=== PATIENT | female | born 1970 | race African-American/Black ===

== ENCOUNTER 2021-05-09 15:39 | Inpatient (IN) | payer SELFPAY ==
[~2021-05-09] VITALS: Ht 165.1 cm; Wt 109.8 kg
[2021-05-09] MEDS ORDERED: SODIUM CHLORIDE 0.9% 1,000 ML IV ONE ×3 (16:15→20:00)
[2021-05-09 19:14] LABS: CHLORIDE 98 mEq/L (98-107)
[2021-05-09 19:19] LABS: ETHANOL BLOOD < 10 mg/dL
[2021-05-09] MEDS ORDERED: MAGNESIUM 2 G PREMIX 50 ML IV ONE (20:00)
[2021-05-09] MEDS ORDERED: POTASSIUM CHLORIDE 20MEQ TABLET SR PO ONE (20:00)
[2021-05-09] MEDS ORDERED: KCL 20MEQ/100ML PREMIX 100 ML IV ONE (20:00)
[2021-05-09 20:22] LABS: HEMATOCRIT. 44.6 % (36.0-48.0); HEMOGLOBIN. 14.5 g/dL (12.0-16.0); MEAN CORPUSCULAR HEMOGLOBIN 27.6 pg (28.0-32.0); MEAN CORPUSCULAR VOLUME 84.8 fL (81.0-99.0); MEAN PLATELET VOLUME 9.2 fl (7.4-10.4); PLATELET 316 x1000/uL (130-400); RED BLOOD CELL COUNT 5.26 mill/uL (4.2-5.4)
[2021-05-09] MEDS ORDERED: ONDANSETRON HCL 4MG/2ML INJ IV PRN (21:30)
[2021-05-09] MEDS ORDERED: ACETAMINOPHEN 325MG TABLET PO PRN (21:30)
[2021-05-09 21:40] LABS: PLATELET ESTIMATE NORMAL
[2021-05-09] MEDS ORDERED: MAGNESIUM 2 G PREMIX 50 ML IV NR (21:40)
[2021-05-09] MEDS ORDERED: ASPIRIN 81MG TABLET PO ONE (21:45)
[2021-05-09 23:16] LABS: CLARITY URINE CLOUDY (CLEAR); COLOR URINE YELLOW (YELLOW); KETONES URINE NEGATIVE (NEGATIVE); LEUKOCYTE ESTERASE URINE TRACE (NEGATIVE); NITRITE URINE NEGATIVE (NEGATIVE); OCCULT BLOOD URINE TRACE (NEGATIVE); PH URINE 5.5 (4.5-8.0); PROTEIN URINE 1+ (NEGATIVE); SPECIFIC GRAVITY URINE 1.011 (1.005-1.030); UROBILINOGEN URINE 0.2 E.U./dL (0.2-1.0)
[2021-05-09 23:20] LABS: PARTIAL THROMBOPLASTIN TIME > 200.0 sec (23.4-31.0)
[2021-05-09 23:31] LABS: *BARBITURATES SCREEN URINE NEGATIVE (NEGATIVE); *BENZODIAZEPINES SCREEN URINE NEGATIVE (NEGATIVE); *COCAINE SCREEN URINE NEGATIVE (NEGATIVE); METHADONE URINE SCREEN NEGATIVE (NEGATIVE)
[2021-05-09 23:32] LABS: *AMPHETAMINES SCREEN URINE NEGATIVE (NEGATIVE); CANNABINOID URINE SCREEN NEGATIVE (NEGATIVE); OPIATES URINE SCREEN NEGATIVE (NEGATIVE); PHENCYCLIDINE URINE SCREEN NEGATIVE (NEGATIVE)
[2021-05-10 05:05] LABS: HEMATOCRIT. 44.9 % (36.0-48.0); HEMOGLOBIN. 14.6 g/dL (12.0-16.0); MEAN CORPUSCULAR HEMOGLOBIN 27.3 pg (28.0-32.0); MEAN CORPUSCULAR VOLUME 84.1 fL (81.0-99.0); MEAN PLATELET VOLUME 8.9 fl (7.4-10.4); PLATELET 336 x1000/uL (130-400); RED BLOOD CELL COUNT 5.34 mill/uL (4.2-5.4); RED CELL DISTRIBUTION WIDTH 16.9 % (11.6-14.6)
[2021-05-10 05:11] LABS: CHLORIDE 104 mEq/L (98-107)
[2021-05-10] MEDS: FUROSEMIDE 40MG/4ML VIAL IV SCH ×3 (05:13→09:00)
[2021-05-10 05:21] LABS: T4 FREE 1.06 ng/dL (0.76-1.46)
[2021-05-10] MEDS ORDERED: ASPIRIN 81MG TABLET PO SCH (05:30)
[2021-05-10] MEDS: SODIUM CHLORIDE 0.9% 1,000 ML IV SCH ×3 (06:29→17:45)
[2021-05-10] MEDS: ENOXAPARIN 30MG/0.3ML SYR SUBCUT SCH ×3 (06:29→21:19)
[2021-05-10] MEDS: KCL 20MEQ/100ML PREMIX 100 ML IV SCH ×4 (07:38→19:32)
[2021-05-10 09:31] LABS: BG BASE EXCESS 6.4 mmol/L (-2.0-2.0); BG CARBOXYHEMOGLOBIN 1.7 % (0.5-1.5); BG DEOXYHEMOGLOBIN 2.8 % (0.0-5.0); BG FRACTION INSPIRED OXYGEN 28; BG HCO3 ACT 32.2 mmol/L (22.0-26.0); BG METHEMOGLOBIN 0.3 % (0.0-1.5); BG OXYGEN SATURATION 97.1 % (92.0-98.5); BG OXYHEMOGLOBIN 95.2 % (94.0-97.0); BG PCO2 49.9 mmHg (35.0-45.0); BG PH 7.427 (7.350-7.450); BG PO2 97.3 mmHg (75.0-100.0); BG SAMPLE SITE RIGHT RADIAL; BG TOTAL HEMOGLOBIN 15.6 g/dL (12.0-18.0); BG VENT MODE NASAL CANNULA
[2021-05-10] MEDS ORDERED: IOHEXOL-350 100 ML BOTTLE ONE (11:42)
[2021-05-10 11:45] LABS: INR 1.1; PROTHROMBIN TIME 11.9 sec (9.6-11.0)
[2021-05-10 12:00] VITALS: BP 124/69
[2021-05-10] MEDS: BLOOD SUGAR DIAGNOSTIC STRIP TEST SCH ×4 (12:03→21:50)
[2021-05-10 12:34] VITALS: BP 169/93
[2021-05-10 12:41] LABS: PLATELET ESTIMATE NORMAL
[2021-05-10] MEDS ORDERED: POTASSIUM CHLORIDE INJ 40 MEQ in DEXT 5% WATER 250 ML IV ONE (13:00)
[2021-05-10 14:00] VITALS: BP 129/70
[2021-05-10] MEDS ORDERED: PAMIDRONATE DISODIUM 90 MG in SODIUM CHLORIDE 0.9% 500 ML IV SCH (14:00)
[2021-05-10 16:00] VITALS: BP 132/78
[2021-05-10 17:38] VITALS: BP 133/76
[2021-05-10 20:32] VITALS: BP 115/79
[2021-05-10 23:37] LABS: HEPATITIS B SURFACE ANTIGEN NEGATIVE
[2021-05-11] VITALS (8 sets, daily range): BP systolic 48–116; BP diastolic 15–73
[2021-05-11] MEDS ORDERED: POTASSIUM CHLORIDE INJ 40 MEQ in DEXT 5% WATER 250 ML IV ONE (01:45)
[2021-05-11] MEDS: KCL 20MEQ/100ML PREMIX 100 ML IV SCH ×2 (02:11→04:23)
[2021-05-11 05:45] LABS: BG BASE EXCESS 1.9 mmol/L (-2.0-2.0); BG CARBOXYHEMOGLOBIN 1.6 % (0.5-1.5); BG DEOXYHEMOGLOBIN 0.5 % (0.0-5.0); BG FRACTION INSPIRED OXYGEN 100; BG HCO3 ACT 28.1 mmol/L (22.0-26.0); BG METHEMOGLOBIN 0.6 % (0.0-1.5); BG OXYGEN SATURATION 99.5 % (92.0-98.5); BG OXYHEMOGLOBIN 97.3 % (94.0-97.0); BG PCO2 49.2 mmHg (35.0-45.0); BG PH 7.374 (7.350-7.450); BG PO2 238.5 mmHg (75.0-100.0); BG SAMPLE SITE LEFT FEMORAL; BG VENT MODE MASK - NRB
[2021-05-11 06:22] LABS: BASOPHILS % 0.1 % (0.0-2.0); HEMATOCRIT. 51.9 % (36.0-48.0); HEMOGLOBIN. 16.4 g/dL (12.0-16.0); LYMPHOCYTES % 7.5 % (20.0-50.0); MEAN CORPUSCULAR HEMOGLOBIN 27.1 pg (28.0-32.0); MEAN CORPUSCULAR VOLUME 85.9 fL (81.0-99.0); MEAN PLATELET VOLUME 9.7 fl (7.4-10.4); MONOCYTES % 4.9 % (2.0-8.0); NEUTROPHILS % 87.5 % (40.0-76.0); PLATELET 307 x1000/uL (130-400); RED BLOOD CELL COUNT 6.04 mill/uL (4.2-5.4); RED CELL DISTRIBUTION WIDTH 17.7 % (11.6-14.6)
[2021-05-11] MEDS: SODIUM CHLORIDE 0.9% 1,000 ML IV SCH (06:45)
[2021-05-11 06:55] LABS: FOLIC ACID (FOLATE) SERUM 12.7 ng/mL (>5.38)
[2021-05-11 08:09] LABS: BG BASE EXCESS -3.9 mmol/L (-2.0-2.0); BG CARBOXYHEMOGLOBIN 0.3 % (0.5-1.5); BG DEOXYHEMOGLOBIN 1.1 % (0.0-5.0); BG FRACTION INSPIRED OXYGEN 99.8; BG HCO3 ACT 23.2 mmol/L (22.0-26.0); BG METHEMOGLOBIN 0.6 % (0.0-1.5); BG OXYGEN SATURATION 98.9 % (92.0-98.5); BG PCO2 49.1 mmHg (35.0-45.0); BG PH 7.292 (7.350-7.450); BG PO2 198.9 mmHg (75.0-100.0); BG SAMPLE SITE RIGHT BRACHIAL; BG TOTAL HEMOGLOBIN 18.8 g/dL (12.0-18.0); BG VENT MODE MASK - NRB
[2021-05-11] MEDS ORDERED: DEXTROSE 50% WATER 50ML SYRINGE IV ONE ×2 (08:34→14:39)
[2021-05-11] MEDS ORDERED: LIDOCAINE HCL 1% 10 MG/ML 10ML VIAL ONE (08:39)
[2021-05-11] MEDS ORDERED: MAGNESIUM 2 G PREMIX 50 ML IV NR (09:00)
[2021-05-11] MEDS ORDERED: LACTULOSE 20G/30ML UDC PO SCH (09:00)
[2021-05-11 13:09] LABS: *AMPHETAMINES SCREEN URINE NEGATIVE (NEGATIVE); *BARBITURATES SCREEN URINE NEGATIVE (NEGATIVE); *BENZODIAZEPINES SCREEN URINE NEGATIVE (NEGATIVE)
[2021-05-11 13:10] LABS: *COCAINE SCREEN URINE NEGATIVE (NEGATIVE); CANNABINOID URINE SCREEN NEGATIVE (NEGATIVE); METHADONE URINE SCREEN NEGATIVE (NEGATIVE); OPIATES URINE SCREEN NEGATIVE (NEGATIVE); PHENCYCLIDINE URINE SCREEN NEGATIVE (NEGATIVE)
[2021-05-11] MEDS ORDERED: SODIUM BICARBONATE 8.4% 1 MEQ/ML 50ML SYR IV ONE (14:39)
[2021-05-11] MEDS ORDERED: EPINEPHRINE 0.1MG/ML (1:10,000) 10ML SYR ONE (14:39)
[2021-05-12 09:07] LABS: IMMUNOGLOBULIN A 383 mg/dL (87-352); IMMUNOGLOBULIN G 1494 mg/dL (586-1602); IMMUNOGLOBULIN M 125 mg/dL (26-217)
== END 2021-05-11 11:44 | DRG 52 ==
LOC: ER 15:39 → MICUSO 20:00 → EDBEDREQ 20:04 → 7EST 05-10 08:49 → CVICU 05-11 05:39
PROVIDERS: ADMIT Hospitalist; ATTEND Hospitalist
PROC: 5A12012 Performance of Cardiac Output, Single, Manual (ICD-10-PCS; principal; 2021-05-11)
DX: G93.41 Metabolic encephalopathy (principal); E87.3 Alkalosis; K76.0 Fatty (change of) liver, not elsewhere classified; R16.0 Hepatomegaly, not elsewhere classified; E83.52 Hypercalcemia; E03.9 Hypothyroidism, unspecified; E83.42 Hypomagnesemia; D72.829 Elevated white blood cell count, unspecified; E66.01 Morbid (severe) obesity due to excess calories; E87.5 Hyperkalemia; E16.2 Hypoglycemia, unspecified; E87.6 Hypokalemia; Z20.822 Contact with and (suspected) exposure to COVID-19; Z68.38 Body mass index [BMI] 38.0-38.9, adult; Z88.5 Allergy status to narcotic agent
CPT/HCPCS: 36415; 36600; 70496; 70498; 71045; 74176; 76700; 80048; 80053; 80076; 80305; 80320; 81003; 82140; 82330; 82375; 82607; 82652; 82728; 82746; 82784; 82805; 82962; 83540; 83550; 83605; 83735; 83880; 83970; 84439; 84443; 84484; 85025; 85384; 85651; 86334; 86705; 86709; 86803; 87070; 87340; 87426; 93005; 93970; 99291; J1650; J1940; J2430; J3475; J3480; J3490; J7030; J7040; J7060; Q9967; G0480